=== PATIENT | male | born 1990 | race Caucasian/White ===

== ENCOUNTER 2023-06-17 13:43 | Emergency (ER) | payer OTHER ==
--- NOTE | 2023-06-17 14:16 | ED Physician Documentation ---
PD HPI ABD PAIN - Stated complaint Stated Complaint: GI,BLOATED - Chief complaint Chief Complaint: Abd Pain - History obtained from History obtained from: Patient - History of Present Illness Timing - onset: How many days ago (6-7) Timing - duration: Days Timing - details: Gradual onset (onset while on trip for business out of town. Increased since return adn with profuse watery stools often with cramping abd pains and nausea. No emesis but poor PO intake. Feeling weak and lightheaded.) Quality: Cramping, Aching, Pain Location: All over / everywhere, Periumbilical Improved by: No: BM Worsened by: Eating Associated symptoms: Nausea, Diarrhea, Loss of appetite. No: Fever, Vomiting, Constipation, Melena, Dysuria Similar symptoms before: Has not had sx before Review of Systems Constitutional: reports: Myalgias. denies: Fever, Chills Nose: reports: Rhinorrhea / runny nose (2-3 weeks ago resolved.), Congestion (2- 3 weeks ago resolved.) Throat: denies: Sore throat Respiratory: denies: Cough PD PAST MEDICAL HISTORY - Past Medical History Cardiovascular: None Respiratory: None Neuro: None Endocrine/Autoimmune: None GI: GERD : None HEENT: None Psych: None Musculoskeletal: None Derm: None - Past Surgical History Past Surgical History: No - Present Medications Home Medications: Ambulatory Orders Medication Instructions Recorded Confirmed Diphenoxylate/Atropine [Lomotil] 1 each PO QID PRN #16 tablet 06/17/23 L.acid/L.casei/B.bif/B.etta/Fos 1 each PO TID 7 Days #20 cap 06/17/23 [Probiotic Blend Capsule] Ondansetron Odt [Zofran] 4 mg TL Q6H PRN #10 tablet 06/17/23 Vancomycin [Vancocin] 125 mg PO QID 10 Days #40 cap 06/17/23 - Allergies Allergies/Adverse Reactions: Allergies Allergy/AdvReac Type Severity Reaction Status Date / Time Penicillins AdvReac Emesis Verified 06/17/23 13:55 - Social History Does the pt smoke?: No Smoking Status: Former smoker Does the pt drink ETOH?: Yes Does the pt have substance abuse?: No - Immunizations Immunizations are current?: No Immunizations: Other immun not current - POLST Patient has POLST: No PD ED PE NORMAL - Vitals Vital signs reviewed: Yes - General General: Alert and oriented X 3, Well developed/nourished - Neck Neck: Supple, no meningeal sign, No adenopathy - Cardiac Cardiac: No murmur. No: RRR (regular but tachycardic) - Abdomen Abdomen: Soft, Non distended, No organomegaly, Other (tender cetnrally and epigastric mild without guarding. Not tender in RLQ nor RUQ. No percussion nor rebound tenderness. ). No: Normal bowel sounds (increased diffusely) - Rectal Rectal: Deferred - Derm Derm: Normal color, Warm and dry - Extremities Extremities: No edema - Neuro Neuro: Alert and oriented X 3, No motor deficit Results - Vitals Vitals: Vital Signs - 24 hr 06/17/23 06/17/23 06/17/23 13:56 16:14 16:51 Temperature 36.4 C L 36.4 C L 36.3 C L Heart Rate 102 H 70 68 Respiratory 18 18 18 Rate Blood Pressure 168/107 H 147/95 H 142/91 H O2 Saturation 98 98 100 Oxygen O2 Source Room air - Labs Labs: Laboratory Tests 06/17/23 06/17/23 06/17/23 14:53 14:53 15:35 WBC 7.5 RBC 5.00 Hgb 15.4 Hct 46.5 MCV 93.0 MCH 30.8 MCHC 33.1 RDW 12.2 Plt Count 216 MPV 11.6 H Neut # (Auto) 5.0 Lymph # (Auto) 1.4 L [place] # (Auto) 0.9 Eos # (Auto) 0.2 Baso # (Auto) 0.0 Absolute Nucleated RBC 0.00 Nucleated RBC % 0.0 Sodium 137 Potassium 4.1 Chloride 101 Carbon Dioxide 27 Anion Gap 9.0 BUN 11 Creatinine 0.8 Estimated GFR (MDRD) 111 Glucose 97 Calcium 9.4 Magnesium 1.8 Total Bilirubin 1.1 H AST 25 ALT 68 H Alkaline Phosphatase 75 Total Protein 8.0 Albumin 4.6 Globulin 3.4 Albumin/Globulin Ratio 1.4 Lipase 23 Stl C. diff Tox B Gene POSITIVE A* PD Medical Decision Making - ED course Complexity details: reviewed results (consider bacterial enteritis, given the cramps and profuse watery dairrhea. He was able to give very watery brown stool sample. Subsequent testing (c. diff. test takes about 6 hours) showed c diff positive. Nursing will call pt and I sent Rx to pharmacy, same one as prior s cripts. ), re-evaluated patient (he was nauseated and had less PO intake with large diarrhea fluid losses, with tachycardia on triage. Given IV fluids and antiemetic, toradol fro cramps. Feeling improved and HR improved after. ), considered differential (has had cramps, diarrhea wwatery, nausea for 6-7 days. [facility]ed [facility], but did not have unusual foods, outdoor activities, obvious bad food. Had had URI about 2 weeks ago which had resolved. ), d/w patient Reviewed Lab Results: considered but did not feel indicated imaging such as CT scan, without focal nor considetent tenderness/pain. Seems mor eenteritis and appropriate testing would be labs for lytes and CBC, as well as stool studies for bacterial enteritis causes. Departure - Departure Disposition: 01 Home, Self Care Clinical Impression: Abdominal cramping, Acute diarrhea, C. difficile enteritis Condition: Stable Record reviewed to determine appropriate education?: Yes Prescriptions: Diphenoxylate/Atropine [Lomotil] 1 each PO QID PRN #16 tablet PRN Reason: Diarrhea L.acid/L.casei/B.bif/B.etta/Fos [Probiotic Blend Capsule] 1 each PO TID 7 Days #20 cap Vancomycin [Vancocin] 125 mg PO QID 10 Days #40 cap Ondansetron Odt [Zofran] 4 mg TL Q6H PRN #10 tablet PRN Reason: Nausea / Vomiting Comments: We are doing some cultures and tests on your diarrheal stool to look for bacter ial type infections. These will not result till later today or tomorrow. Will call if there is an indication of a bacterial infection the need specific antibiotic treatment. Otherwise this may be a viral type illness. Small frequent fluids and antacid such as Maalox or Mylanta. You can use ondansetron if needed for nausea. Antidiarrhea medicines. I prescribed Lomotil to use every 4-6 hours if needed for the diarrhea. In conjunction with this I would suggest using some fiber supplement such as Metamucil along with a probiotic to add back some good germs to the intestine. See if you are improved over the next 2 or 3 days with this. If you have persistent symptoms in the stool test do not show a specific back. Cause., Then we could empirically try an antibiotic. Call back if you are not improved over the next few days and if you have not heard from us. If this resolves in the next 2 to 3 days then most likely was a viral type illness. Tylenol every 4-6 hours as needed for pains. I sent your prescription to your preferred pharmacy. Forms: PCP List Discharge Date/Time: 06/17/23 16:58
[2023-06-17] MEDS ORDERED: SODIUM CHLORIDE 0.9% 1,000 ML IV STA (14:42)
[2023-06-17] MEDS ORDERED: ONDANSETRON 4 MG/2 ML VIAL IVP STA (14:42)
[2023-06-17] MEDS ORDERED: KETOROLAC 15 MG/ML VIAL IVP STA (14:42)
[2023-06-17 15:00] LABS: BASOPHILS % (AUTO) 0.5 %; EOSINOPHILS # (AUTO) 0.2 10^3/uL (0.0-0.7); EOSINOPHILS % (AUTO) 2.4 %; HCT - HEMATOCRIT 46.5 % (42.0-52.0); HGB - HEMOGLOBIN 15.4 g/dL (14.0-18.0); LYMPHOCYTES # (AUTO) 1.4 10^3/uL (1.5-3.5); LYMPHOCYTES % (AUTO) 18.3 %; MEAN CORPUSCULAR HEMOGLOBIN 30.8 pg (27.0-31.0); MEAN CORPUSCULAR HGB CONC 33.1 g/dL (32.0-36.0); MEAN PLATELET VOLUME 11.6 fL (7.4-11.4); MONOCYTES # (AUTO) 0.9 10^3/uL (0.0-1.0); MONOCYTES % (AUTO) 11.6 %; NEUTROPHILS % (AUTO) 66.9 %; PLT - PLATELET COUNT 216 10^3/uL (130-450); RED CELL DISTRIBUTION WIDTH 12.2 % (12.0-15.0); WHITE BLOOD COUNT 7.5 x10^3/uL (4.8-10.8)
[2023-06-17 15:21] LABS: ALBUMIN 4.6 g/dL (3.2-5.5); ALBUMIN/GLOBULIN RATIO 1.4 (1.0-2.2); BILIRUBIN,TOTAL 1.1 mg/dL (0.2-1.0); CALCIUM 9.4 mg/dL (8.5-10.3); CREATININE 0.8 mg/dL (0.6-1.3); MAGNESIUM 1.8 mg/dL (1.7-2.3); POTASSIUM 4.1 mmol/L (3.5-4.5)
[2023-06-17] MEDS ORDERED: DIPHENOX/ATROPINE 2.5/0.025 MG TABLET PO STA (15:44)
[2023-06-17] MEDS ORDERED: DICYCLOMINE 10 MG CAPSULE PO STA (15:45)
[2023-06-17] MEDS ORDERED: MAG HYDROX/AL HYDROX/SIMETH 30 ML UDC PO STA (16:42)
[2023-06-17 16:57] VITALS: BP 142/91; O2SAT 100
[2023-06-18 07:10] LABS: ADENOVIRUS F 40/41 Not Detected (Not Detected); ASTROVIRUS Not Detected (Not Detected); C DIFFICILE TOXIN A/B Detected (Not Detected); CAMPYLOBACTER Not Detected (Not Detected); CRYPTOSPORIDIUM Not Detected (Not Detected); CYCLOSPORA CAYETANENSIS Not Detected (Not Detected); ENTAMOEBA HISTOLYTICA Not Detected (Not Detected); ENTEROAGGREGATIVE E COLI Not Detected (Not Detected); ENTEROPATHOGENIC E COLI Not Detected (Not Detected); ENTEROTOXIGENIC E COLI Not Detected (Not Detected); GIARDIA LAMBLIA Not Detected (Not Detected); NOROVIRUS GI/GII Not Detected (Not Detected); PLESIOMONAS SHIGELLOIDES Not Detected (Not Detected); ROTAVIRUS A Not Detected (Not Detected); SALMONELLA Not Detected (Not Detected); SAPOVIRUS Not Detected (Not Detected); SHIGA-TOXIN-PRODUCING E COLI Not Detected (Not Detected); SHIGELLA/ENTEROINVASIVE E COLI Not Detected (Not Detected); VIBRIO Not Detected (Not Detected); VIBRIO CHOLERAE Not Detected (Not Detected); YERSINIA ENTEROCOLITICA Not Detected (Not Detected)
== END 2023-06-17 16:58 | disposition home or self-care (01) ==
LOC: ED 13:43
DX: A04.71 Enterocolitis due to Clostridium difficile, recurrent (principal); Z87.891 Personal history of nicotine dependence
CPT/HCPCS: 36415; 80053; 83690; 83735; 85025; 87493; 87507; 96361; 96374; 99283; A9270